=== PATIENT | male | born 1985 | race African-American/Black ===

== ENCOUNTER 2016-11-27 17:23 | Emergency (ER) | payer OTHER ==
[~2016-11-27] VITALS: Wt 64.0 kg
[~2016-11-27 17:23] MED LIST: ANUSOL HC30 GM PO; AZULFIDINE500 M1 PO; BACTRIM DS 8001 TA1 PO; CLINDAMYCIN150 MG PO; FEOSOL325 MG PO; FEROSUL325 MG PO; HYDROCODONE BIT1 T11 PO; K-TAB20 MEQ PO; KEFLEX500 MG PO; NAPROSYN500 MG PO; NATURE'S BLEND F1 MG PO; NORCO 5-325 TA1 EACH PO; Nystatin Ointme30 GM T; PENICILLIN VK500 MG PO; PEPCID20 MG PO; PERCOCET 325 MG1 TA3 PO; PROCTOFOAM-HC 11 FOA RC; PROTONIX40 M1 PO; Peridex 473 ML473 ML PO; TRAMADOL HCL50 MG PO
[2016-11-27] MEDS ORDERED: Bactroban Oint22 GM T (17:32)
[2016-11-27] MEDS ORDERED: NAPROSYN500 MG PO (17:34)
== END 2016-11-27 17:42 | disposition home or self-care (01) ==
LOC: ED 17:23
DX: S31.801A Laceration without foreign body of unspecified buttock, initial encounter (principal); F17.200 Nicotine dependence, unspecified, uncomplicated; Z88.6 Allergy status to analgesic agent; Z79.899 Other long term (current) drug therapy; X58.XXXA Exposure to other specified factors, initial encounter; Y93.9 Activity, unspecified; Y92.9 Unspecified place or not applicable; Y99.9 Unspecified external cause status

== ENCOUNTER 2016-11-28 09:36 | Emergency (ER) | payer OTHER ==
[~2016-11-28] VITALS: Ht 180.3 cm; Wt 67.6 kg
[~2016-11-28 09:36] MED LIST changes: +Bactroban Oint22 GM T
== END 2016-11-28 10:16 | disposition home or self-care (01) ==
LOC: ED 09:36
DX: S31.831A Laceration without foreign body of anus, initial encounter (principal); R03.0 Elevated blood-pressure reading, without diagnosis of hypertension; F17.200 Nicotine dependence, unspecified, uncomplicated; Z79.899 Other long term (current) drug therapy; Z88.6 Allergy status to analgesic agent; X58.XXXA Exposure to other specified factors, initial encounter; Y93.89 Activity, other specified; Y92.89 Other specified places as the place of occurrence of the external cause; Y99.9 Unspecified external cause status

== ENCOUNTER 2017-05-24 20:38 | Inpatient (IN) | payer OTHER ==
[~2017-05-24] VITALS: Ht 180.3 cm; Wt 56.8 kg
[2017-05-24] VITALS (7 sets, daily range): BP systolic 106–133; BP diastolic 75–85
--- NOTE | ~2017-05-24 | O ---
[place], [place] OPERATIVE NOTE NAME: CHATO COLÓN UNIT #: [id number] ROOM: 403 DOCTOR: EDISON LANEJOHN BIRTHDATE: [birth year] DOS: 05/28/2017 INDICATIONS: This is a 32-year-old patient, who presented with chief complaint of lower GI bleed, need of transfusion. The patient has been previously diagnosed by me in 2016 with Crohn's disease; however, he has had his doubts. He has been seen elsewhere also. He has been told he does not have Crohn's. He has been given medication sulfasalazine, he has not taken it. Here, we have supplemented him with Pentasa while it was available in the hospital. The patient has been transfused and stabilized. Endoscopic assessment of his upper GI tract did not show any involvement of the pathology except gastritis. He continued to have his bleedings and anemia, and therefore there was controversy that family was saying he does not have Crohn's. Due to the ambiguity of all this scenario, second opinion, again, colonoscopy, terminal ileoscopy today is performed. Therefore, today's procedure part of investigation is colonoscopy, terminal ileoscopy, biopsy, and photographic series. PREMEDICATION: Versed and propofol. SCOPE: Olympus folding colonoscope 10L video. REPORT: After putting the patient in left lateral position and application of lubricant to the scope, the scope was introduced. Thereafter, under direct visualization, advanced through the length of colon without difficulty. Base of the cecum explored, appendiceal orifice identified, ileocecal valve was defined. Terminal ileum was scoped and negotiated the scope approximately 20 cm inside the terminal ileum. Multiple ulceration at distal ileum was identified clearly consistent with Crohn's disease. Photographic series was obtained. Biopsies multiple times was obtained. The patient extubated, tolerated procedure well. IMPRESSION: Colonoscopy and terminal ileoscopy consistent with multiple ulcerations in terminal ileum consistent with Crohn's disease and consistent with source of blood loss, anemia. PLAN AND DISCUSSION: If Pentasa is covered by insurance, we have to proceed with Pentasa therapy 1 gram q.i.d. and transfusion supportive management. In addition, we will keep the patient on PPI to assure coverage for his dyspepsia. [place], [place] OPERATIVE NOTE NAME: CHATO COLÓN UNIT #: [id number] ROOM: [facility] DOCTOR: JOHN HOGAN MD BIRTHDATE: [birth year] JOHN HOGAN MD CM:OPRECORD:OPERATIVE NOTE [id number] [id number] JOHN HOGAN MD 05/28/17 1707 interface
--- NOTE | ~2017-05-24 | O ---
[place], [place] OPERATIVE NOTE NAME: CHATO COLÓN UNIT #: [id number] ROOM: [facility]- DOCTOR: EDISON LANEJOHN BIRTHDATE: [birth year] DOS: 05/26/2017 HISTORY OF PRESENT ILLNESS: The patient is a 32-year-old who has presented with GI bleed. His initial lactic acid was 5.1. His lipase was normal. C-reactive protein was 13. His INR was 1.2. CBC differential showed H and H of 5 and 17 with white blood cell of 25,000. He had platelet of 713. The patient's comprehensive metabolic panel, BUN and creatinine was 25 and 1.28. Electrolytes balanced. Liver function test normal. Troponin was within normal limit. His CT scan of the abdomen and pelvis was reviewed. Stool in the colon. His hemoglobin A1c was 44.8. His HIV screening was nonreactive. Blood cultures, no growth in 48 hours. PAST MEDICAL HISTORY: History of Crohn's disease. Recently scoped in April and confirmed Crohn's. He has not been taking his medications. Other adjunctive diagnoses, ankle pain, gastroesophageal reflux, hemorrhoid. SOCIAL HISTORY: Recreational drug user. PAST SURGICAL HISTORY: Vasectomy, EGD, and colonoscopy. SOCIAL HISTORY: Marijuana, recreational drug, alcohol, and tobacco user. FAMILY HISTORY: Noncontributory. ALLERGIES: TO TRAMADOL. MEDICATIONS AT HOME: Reviewed. He has been given sulfasalazine 500 mg 2 tablets to be taken b.i.d. in addition to folic acid; however, he has not been compliant. He has been given Protonix. He has not been taking his medicine. PROCEDURE: Today's procedure part of investigation is panendoscopy plus photographic series. PREMEDICATION: Versed and Diprivan. SCOPE: Olympus forward-viewing gastroscope Q10 video. REPORT: After putting the patient in left lateral position and application of lubricant to the scope, the scope was introduced. Thereafter, under direct visualization, I advanced through the length of esophagus without difficulty. Gastric pouch was entered. Gastritis was seen. This is of mild degree. Duodenal bulb, second and third part within normal limits. The patient extubated, tolerated procedure well. IMPRESSION: Mild gastritis, no active bleeding from upper GI tract. I have done rectal examination, melanotic stool of course has been noticed. PLAN AND DISCUSSION: This patient could be bleeding from his distal small bowel. He has been not taking his Crohn's medications and we are going to [place], [place] OPERATIVE NOTE NAME: CHATO COLÓN UNIT #: [id number] ROOM: [facility] DOCTOR: EDISON LANE,JOHN BIRTHDATE: [birth year] encourage him to continue being compliant and workup otherwise in progress. If he continues to lose blood, we are going to reassess his terminal ileum again. Otherwise, we will be comfortable with feeding him and clinically follow as outpatient. He is carrying history of Crohn's disease, recently diagnosed and not taking medication. JOHN HOGAN MD CM:OPRECORD:OPERATIVE NOTE [id number] JOHN HOGAN MD 05/26/17 1543 interface
[2017-05-24] MEDS ORDERED: PROTONIX20 MG PO (20:53)
[2017-05-24 21:23] LABS: MEAN CELL VOLUME 67.3 fl (80.0-94.0); MEAN CORPUSCULAR HGB 19.9 pg (27.0-31.0); MEAN CORPUSCULAR HGB CONC 29.6 g/dl (33.0-37.0); MEAN PLATELET VOLUME 8.5 fl (9.6-12.3); PLATELET COUNT AUTOMATED 713 10*3/uL (130-400); RED BLOOD COUNT 2.66 10*6/uL (4.50-5.90); RED CELL DISTRI WIDTH 29.2 % (0-14.5); WHITE BLOOD COUNT 25.6 10*3/uL (4.8-10.8)
[2017-05-24 21:27] LABS: HEMATOCRIT 17.9 % (42.0-52.0); HEMOGLOBIN 5.3 g/dl (14.0-18.0)
[2017-05-24 21:39] LABS: ACT PARTIAL THROMBO TIME 29.5 SECONDS (20.8-31.5); INTERNATIONAL NORM RATIO 1.2 (2.0-3.5)
[2017-05-24 21:44] LABS: MICROCYTOSIS SLIGHT; PLATELET SUFFICIENCY HIGH (NORMAL); POLYCHROMASIA SLIGHT; TARGET CELLS FEW; TOTAL CELLS COUNTED 100 #CELLS
[2017-05-24 21:45] LABS: BURR CELLS FEW; SCHISTOCYTES FEW
[2017-05-24 22:03] LABS: ALBUMIN 2.4 gm/dl (3.1-4.5); ALKALINE PHOSPHATASE 76 U/L (45-117); BUN 25 mg/dl (7-24); CHLORIDE 100 mmol/L (98-107); CREATININE 1.28 mg/dL (0.70-1.30); POTASSIUM 4.4 mmol/L (3.5-5.1); SGOT/AST 7 IU/L (3-35); SGPT/ALT 9 U/L (12-78); SODIUM 133 mmol/L (136-145); TOTAL PROTEIN 6.9 gm/dL (6.4-8.2)
[2017-05-24 22:05] LABS: TROPONIN I < 0.015 ng/ml (<0.045)
[2017-05-24 23:39] LABS: HEMOGLOBIN 6.6 g/dl (14.0-18.0)
[2017-05-25] VITALS: BP 139/81
[2017-05-25 04:00] VITALS: BP 129/86
[2017-05-25 04:28] LABS: HEMATOCRIT 23.5 % (42.0-52.0); HEMOGLOBIN 7.9 g/dl (14.0-18.0); MEAN CORPUSCULAR HGB 24.8 pg (27.0-31.0); MEAN CORPUSCULAR HGB CONC 33.6 g/dl (33.0-37.0); MEAN PLATELET VOLUME 8.1 fl (9.6-12.3); PLATELET COUNT AUTOMATED 533 10*3/uL (130-400); RED BLOOD COUNT 3.18 10*6/uL (4.50-5.90); WHITE BLOOD COUNT 19.8 10*3/uL (4.8-10.8)
[2017-05-25 04:30] LABS: MEAN CELL VOLUME 73.9 fl (80.0-94.0)
[2017-05-25 04:40] LABS: ACT PARTIAL THROMBO TIME 29.7 SECONDS (20.8-31.5); INTERNATIONAL NORM RATIO 1.1 (2.0-3.5)
[2017-05-25 04:58] LABS: BUN 24 mg/dl (7-24); CHLORIDE 101 mmol/L (98-107); CHOLESTEROL 87 mg/dL (<200); CREATININE 0.91 mg/dL (0.70-1.30); HDL CHOLESTEROL 19 mg/dl (40-60); LDL CHOLESTEROL 27 mg/dL (9-159); PHOSPHOROUS 4.7 mg/dL (2.5-4.9); POTASSIUM 4.2 mmol/L (3.5-5.1); SODIUM 134 mmol/L (136-145); TRIGLYCERIDES 205 mg/dl (<150); VLDL CHOLESTEROL 41 mg/dL (6-40)
[2017-05-25 05:02] LABS: BASOPHILS 1 % (0-1); MICROCYTOSIS SLIGHT; PLATELET SUFFICIENCY HIGH (NORMAL); TARGET CELLS FEW; TOTAL CELLS COUNTED 100 #CELLS
[2017-05-25 05:04] LABS: THYROID STIM HORMONE (HS) 0.967 uIU/ml (0.358-4.75)
[2017-05-25 07:15] LABS: BILIRUBIN NEGATIVE (NEGATIVE); BLOOD NEGATIVE (NEGATIVE); COLOR YELLOW (YELLOW); GLUCOSE NEGATIVE (NEGATIVE); KETONE NEGATIVE (NEGATIVE); LEUKO ESTERASE NEGATIVE (NEGATIVE); NITRITE NEGATIVE (NEGATIVE); SPECIFIC GRAVITY 1.015 (1.005-1.030)
[2017-05-25 07:31] LABS: CLARITY CLEAR (CLEAR); EPITHELIAL CELLS 0-2; RBC 0-2 rbc/hpf (0-2)
[2017-05-25 08:00] VITALS: BP 126/78
[2017-05-25 08:12] LABS: VITAMIN D, 25-HYDROXY 9.1 ng/mL (30-100)
[2017-05-25 10:31] LABS: HEMATOCRIT 26.2 % (42.0-52.0); HEMOGLOBIN 8.6 g/dl (14.0-18.0)
[2017-05-25 12:00] VITALS: BP 112/74
[2017-05-25 16:00] VITALS: BP 122/76
[2017-05-25 20:00] VITALS: BP 123/77
[2017-05-26] VITALS (10 sets, daily range): BP systolic 101–148; BP diastolic 53–76
[2017-05-26 05:40] LABS: ALBUMIN 2.4 gm/dl (3.1-4.5); BUN 16 mg/dl (7-24); CHLORIDE 102 mmol/L (98-107); CREATININE 0.81 mg/dL (0.70-1.30); POTASSIUM 4.1 mmol/L (3.5-5.1); SGOT/AST 11 IU/L (3-35); SGPT/ALT 11 U/L (12-78); SODIUM 134 mmol/L (136-145); TOTAL PROTEIN 6.5 gm/dL (6.4-8.2)
[2017-05-26 05:41] LABS: ALKALINE PHOSPHATASE 67 U/L (45-117)
[2017-05-26 05:57] LABS: HEMATOCRIT 27.2 % (42.0-52.0); HEMOGLOBIN 8.8 g/dl (14.0-18.0); MEAN CELL VOLUME 75.3 fl (80.0-94.0); MEAN CORPUSCULAR HGB 24.4 pg (27.0-31.0); MEAN CORPUSCULAR HGB CONC 32.4 g/dl (33.0-37.0); MEAN PLATELET VOLUME 8.2 fl (9.6-12.3); PLATELET COUNT AUTOMATED 542 10*3/uL (130-400); RED BLOOD COUNT 3.61 10*6/uL (4.50-5.90); RED CELL DISTRI WIDTH 26.7 % (0-14.5); WHITE BLOOD COUNT 17.2 10*3/uL (4.8-10.8)
[2017-05-26 07:04] LABS: HIV 1+2 AB + HIV1 P24 AG Non Reactive (Non Reactive)
[2017-05-26 07:14] LABS: MICROCYTOSIS SLIGHT; PLATELET SUFFICIENCY HIGH (NORMAL); TARGET CELLS FEW; TOTAL CELLS COUNTED 100 #CELLS
[2017-05-27] VITALS: BP 109/62
[2017-05-27 04:00] VITALS: BP 111/69
[2017-05-27 05:47] LABS: HEMATOCRIT 26.1 % (42.0-52.0); HEMOGLOBIN 8.4 g/dl (14.0-18.0); MEAN CELL VOLUME 77.7 fl (80.0-94.0); MEAN CORPUSCULAR HGB CONC 32.2 g/dl (33.0-37.0); PLATELET COUNT AUTOMATED 546 10*3/uL (130-400); RED BLOOD COUNT 3.36 10*6/uL (4.50-5.90); RED CELL DISTRI WIDTH 27.6 % (0-14.5); WHITE BLOOD COUNT 9.8 10*3/uL (4.8-10.8)
[2017-05-27 05:54] LABS: IRON 13 ug/dL (65-175); TOTAL IRON BINDING CAPACITY 186 ug/dl (250-450)
[2017-05-27 05:58] LABS: RETICULOCYTE % 1.78 % (0.50-2.50)
[2017-05-27 06:00] VITALS: BP 111/69
[2017-05-27 07:21] LABS: TOTAL CELLS COUNTED 100 #CELLS
[2017-05-27 07:22] LABS: MICROCYTOSIS SLIGHT; PLATELET SUFFICIENCY HIGH (NORMAL); POLYCHROMASIA SLIGHT; TARGET CELLS FEW
[2017-05-27 16:00] VITALS: BP 128/82
[2017-05-27 20:05] VITALS: BP 135/72
[2017-05-27 23:57] VITALS: BP 135/90
[2017-05-28 06:10] LABS: BASO % 0.2 % (0.0-1.0); EOS % 0.3 % (1.0-4.0); HEMATOCRIT 27.8 % (42.0-52.0); HEMOGLOBIN 8.6 g/dl (14.0-18.0); LYMPH # 1.1 10*3/uL (1.3-4.4); LYMPH % 8.9 % (27.0-41.0); MEAN CELL VOLUME 78.8 fl (80.0-94.0); MEAN CORPUSCULAR HGB 24.4 pg (27.0-31.0); MEAN CORPUSCULAR HGB CONC 30.9 g/dl (33.0-37.0); MEAN PLATELET VOLUME 8.2 fl (9.6-12.3); MONO % 8.3 % (3.0-9.0); NEUT # 10.3 10*3/uL (2.3-7.9); NEUT % 81.9 % (47.0-73.0); PLATELET COUNT AUTOMATED 622 10*3/uL (130-400); RED BLOOD COUNT 3.53 10*6/uL (4.50-5.90); RED CELL DISTRI WIDTH 27.9 % (0-14.5); WHITE BLOOD COUNT 12.6 10*3/uL (4.8-10.8)
[2017-05-28 08:00] VITALS: BP 124/72
[2017-05-28] MEDS ORDERED: VITAMIN D5000 UNI1 PO (11:02)
[2017-05-28] MEDS ORDERED: NATURE'S BLEND F1 MG PO (11:02)
[2017-05-28 12:11] VITALS: BP 121/89
[2017-05-28 14:55] VITALS: BP 99/54
[2017-05-28] MEDS ORDERED: PENTASA500 M1 PO (15:03)
[2017-05-28 15:10] VITALS: BP 112/64
[2017-05-28 15:25] VITALS: BP 110/60
[2017-05-28 16:00] VITALS: BP 138/67
== END 2017-05-28 17:49 | disposition home or self-care (01) | DRG 871 ==
LOC: ED 20:38 → EDHOLD 22:05 → ED 22:05 → ICCU 22:09 → EDHOLD 22:09 → ICCU 22:16 → 4E 05-27 15:42
PROVIDERS: Hospitalist; Internal Medicine; Internal Medicine Gastroenterology; Student in an Organized Health Care Education/Training Program
PROC: 30233N1 Transfusion of Nonautologous Red Blood Cells into Peripheral Vein, Percutaneous Approach (ICD-10-PCS; principal; 2017-05-24)
PROC: 0DJ08ZZ Inspection of Upper Intestinal Tract, Via Natural or Artificial Opening Endoscopic (ICD-10-PCS; 2017-05-26)
PROC: 0DBB8ZX Excision of Ileum, Via Natural or Artificial Opening Endoscopic, Diagnostic (ICD-10-PCS; 2017-05-28)
DX: A41.9 Sepsis, unspecified organism (principal); E43 Unspecified severe protein-calorie malnutrition; E87.2 Acidosis; K29.71 Gastritis, unspecified, with bleeding; D62 Acute posthemorrhagic anemia; E87.1 Hypo-osmolality and hyponatremia; K50.911 Crohn's disease, unspecified, with rectal bleeding; K92.1 Melena; Z68.1 Body mass index [BMI] 19.9 or less, adult; K52.9 Noninfective gastroenteritis and colitis, unspecified; R65.20 Severe sepsis without septic shock; G89.29 Other chronic pain; M25.572 Pain in left ankle and joints of left foot; E78.1 Pure hyperglyceridemia; R73.9 Hyperglycemia, unspecified; D47.3 Essential (hemorrhagic) thrombocythemia; F17.210 Nicotine dependence, cigarettes, uncomplicated; E55.9 Vitamin D deficiency, unspecified; K21.9 Gastro-esophageal reflux disease without esophagitis; Z88.8 Allergy status to other drugs, medicaments and biological substances; Z79.899 Other long term (current) drug therapy; Z87.81 Personal history of (healed) traumatic fracture; Z98.52 Vasectomy status; Z72.89 Other problems related to lifestyle; Z71.6 Tobacco abuse counseling; Z80.7 Family history of other malignant neoplasms of lymphoid, hematopoietic and related tissues; Z82.49 Family history of ischemic heart disease and other diseases of the circulatory system

== ENCOUNTER 2017-08-01 18:09 | Emergency (ER) | payer OTHER ==
[~2017-08-01] VITALS: Ht 180.3 cm; Wt 65.8 kg
[~2017-08-01 18:09] MED LIST changes: +CYCLOBENZAPRINE10 MG PO; +PENTASA500 M1 PO; +PROTONIX20 MG PO; +VITAMIN D5000 UNI1 PO
[2017-08-01] MEDS ORDERED: NAPROSYN500 MG PO (19:45)
== END 2017-08-01 20:25 | disposition home or self-care (01) ==
LOC: ED 18:09
DX: S29.011D Strain of muscle and tendon of front wall of thorax, subsequent encounter (principal); F17.200 Nicotine dependence, unspecified, uncomplicated; F12.10 Cannabis abuse, uncomplicated; Z90.89 Acquired absence of other organs; Z79.899 Other long term (current) drug therapy; Z88.6 Allergy status to analgesic agent; X58.XXXD Exposure to other specified factors, subsequent encounter

== ENCOUNTER 2017-08-15 05:50 | Inpatient (IN) | payer OTHER ==
[2017-08-15] VITALS (19 sets, daily range): BP systolic 92–130; BP diastolic 44–86
[~2017-08-15] VITALS: Ht 180.3 cm; Wt 72.2 kg
--- NOTE | ~2017-08-15 | O ---
[place], [place] OPERATIVE NOTE NAME: CHATO COLÓN UNIT #: [id number] ROOM: [facility]- DOCTOR: EDISON LANE,JOHN BIRTHDATE: [birth year] DOS: 08/16/2017 INDICATIONS: The patient has presented with GI bleed, profound anemia, and initially H and H of 5 and 18, microcytic indices. The patient with known history of Crohn's disease and had to be admitted, observed, transfused, and stabilized. His troponin during this evaluation was normal. A comprehensive metabolic panel, benign. A CT scan of the abdomen and pelvis was obtained. No definitive pathology. Platelet function assay was 101. Normal hemoglobin and hematocrit periodically after transfusion was reassessed until be achieved. H and H of 9 and 28.8. Latest hemoglobin and hematocrit is 9 and 29, which is stabilized. His latest comprehensive metabolic panel is within normal limit except for low albumin and protein at 2.7 and 5.7 respectively. PAST MEDICAL HISTORY: Associated with Crohn's disease, hemorrhoid, GERD. PAST SURGICAL HISTORY: Vasectomy. SOCIAL HISTORY: Marijuana user or alcohol use and tobacco abuse, all present. FAMILY HISTORY: Lymphoma in father. ALLERGIES: TRAMADOL. MEDICATIONS: At home including naproxen, mesalamine, Pentasa 500 mg 2 tablets q.i.d., folic acid 1 mg daily, cholecalciferol as well. PROCEDURE: Today's procedure part of investigation of GI bleed is panendoscopy. PREMEDICATION: Propofol. SCOPE: Olympus forwarding gastroscope Q10 video. REPORT: After putting the patient in left lateral position and application of lubricant to the scope, the scope was introduced. Thereafter, under direct visualization, I advanced through the length of esophagus without difficulty. Small hiatal hernia was noticed approximately 2 cm. Gastric pouch was entered. Gastritis seen. Duodenal bulb, second and third part free of ulceration and lesion. Air was suctioned out. The patient was extubated, tolerated procedure well. IMPRESSION: Hiatal hernia, gastritis. PLAN AND DISCUSSION: Apparently, this gentleman has had colonoscopy in May. Apparently, he has been noncompliant in his intake of mesalamine. We are going to transfuse as soon as his H and H stabilizes. We will encourage him to continue with the correct dose of mesalamine 500 mg 2 tablets 4 times a day and we will observe H and H. [place], [place] OPERATIVE NOTE NAME: CHATO COLÓN UNIT #: [id number] ROOM: [facility] DOCTOR: EDISON LANE,JOHN BIRTHDATE: [birth year] JOHN HOGAN MD CM:OPRECORD:OPERATIVE NOTE 34 27 JOHN HOGAN MD 08/16/172127 interface
--- NOTE | ~2017-08-15 | WRIGHTHP ---
[place], [place] PATIENT HISTORY AND PHYSICAL EXAM NAME: CHATO COLÓN [facility] #: [id number] UNIT #: [id number] ROOM: [facility] DOCTOR: LAURIE ACOSTA MD BIRTHDATE: [birth year] DOS: 08/15/2017 HISTORY OF PRESENT ILLNESS: The patient has been admitted to hospital in the morning with the GI bleeding. The patient was feeling fairly good during the daytime and he ate normal breakfast, lunch and dinner but then he started having some pain in the abdomen and also had some nausea. He went to pass his stools and found blood in his bowels and this blood was also bright red and also tarry and he slept but feeling weak. Then in the morning, he got up, he had vomiting, but there is no blood in it and he had another bloody stools and he collapsed and passed out and he was brought to emergency from where he is admitted to hospital with the GI bleed and severe hypochromic anemia secondary to GI bleed. The patient was admitted to hospital in May, almost in the same situation and had blood transfusion given. At that time, he had colonoscopy done by Dr. Perez which showed multiple ulcerations distal ileum consistent with Crohn's disease, post hemorrhagic anemia, enterocolitis, severe sepsis, tachycardia, tachypnea, hyponatremia, lactic acidosis, protein calorie malnutrition, elevated C-reactive protein, leukocytosis, thrombocytosis, tobacco abuse, history of drinking some alcohol, vitamin D deficiency, GERD syndrome, esophagitis and patient needed blood transfusion ____. The patient is taking following medication at present, he is taking ferrous sulfate 325 mg twice daily, folic acid 1 mg daily, Protonix 20 mg daily, vitamin D 5000 units daily, Pentasa 500 mg 4 times daily. LABORATORY DATA: CBC done in the ER showed white count 90,700, RBC 2.26, hemoglobin 5.6, hematocrit 18.4, MCV 81 indicating severe hypochromic anemia secondary to his GI bleed. Comprehensive metabolic profile showed glucose 136, chloride 110, calcium 7.5, total protein 6.2, albumin 2.6 indicating hypoalbuminemia, hypoproteinemia, hypocalcemia. Other values are fairly normal. Protein level was normal. PHYSICAL EXAMINATION: GENERAL: The patient is conscious, alert and oriented. VITAL SIGNS: Temperature 97.3, pulse is 98, respiration is 21, oxygen 98% and blood pressure is 128/60 and patient is receiving blood transfusion. HEENT: Unremarkable. No glandular enlargement. NECK: Trachea central. Neck veins are not distended. Carotid pulses are normal. HEART: Regular. No murmur. LUNGS: Clear. No crepitations or rhonchi. ABDOMEN: Not distended. Liver and spleen not enlarged. There is no area of tenderness, no mass palpable. Bowel sounds are present. EXTREMITIES: No edema of leg. NEUROLOGIC: No neurological deficit observed. DIAGNOSES: Gastrointestinal bleeding due to acute excerebration of his Crohn's disease and hypochromic anemia, severe secondary to GI bleed, which is fresh and also having hypoalbuminemia, hypoproteinemia and the patient is having low calcium also. PLAN OF TREATMENT: The patient will be continued on the home medication. He [place], [place] PATIENT HISTORY AND PHYSICAL EXAM NAME: CHATO COLÓN UNIT #: [id number] ROOM: [facility] DOCTOR: LAURIE ACOSTA MD BIRTHDATE: [birth year] will receive 2 units of blood transfusion. Repeat CBC and comprehensive profile and Dr. Perez will be consulted and he will be followed very, very closely. LAURIE ACOSTA MD CM:HISPHYS:PATIENT HISTORY AND PHYSICAL EXAMINATION 1017 1206 LAURIE ACOSTA MD 08/15/17 1242 interface
[2017-08-15 06:25] LABS: HEMATOCRIT 18.4 % (42.0-52.0); MEAN CELL VOLUME 81.4 fl (80.0-94.0); MEAN CORPUSCULAR HGB 23.9 pg (27.0-31.0); MEAN CORPUSCULAR HGB CONC 29.3 g/dl (33.0-37.0); PLATELET COUNT AUTOMATED 496 10*3/uL (130-400); RED BLOOD COUNT 2.26 10*6/uL (4.50-5.90); RED CELL DISTRI WIDTH 20.3 % (0-14.5); WHITE BLOOD COUNT 19.7 10*3/uL (4.8-10.8)
[2017-08-15 06:27] LABS: HEMOGLOBIN 5.4 g/dl (14.0-18.0)
[2017-08-15 06:35] LABS: ACT PARTIAL THROMBO TIME 19.5 SECONDS (20.8-31.5)
[2017-08-15 06:40] LABS: ALBUMIN 2.9 gm/dl (3.1-4.5); ALKALINE PHOSPHATASE 65 U/L (45-117); BUN 22 mg/dl (7-24); CHLORIDE 110 mmol/L (98-107); CREATININE 1.03 mg/dL (0.70-1.30); POTASSIUM 3.9 mmol/L (3.5-5.1); SGOT/AST 14 IU/L (3-35); SGPT/ALT 11 U/L (12-78); SODIUM 141 mmol/L (136-145); TOTAL PROTEIN 6.2 gm/dL (6.4-8.2)
[2017-08-15 06:41] LABS: TROPONIN I < 0.015 ng/ml (<0.045)
[2017-08-15 06:45] LABS: BASOPHILS 1 % (0-1); PLATELET SUFFICIENCY HIGH (NORMAL); TOTAL CELLS COUNTED 100 #CELLS
[2017-08-15 06:46] LABS: POLYCHROMASIA SLIGHT
[2017-08-15 16:13] LABS: HEMATOCRIT 23.2 % (42.0-52.0); HEMOGLOBIN 7.1 g/dl (14.0-18.0)
[2017-08-15 21:58] LABS: HEMATOCRIT 26.1 % (42.0-52.0); HEMOGLOBIN 8.4 g/dl (14.0-18.0)
[2017-08-16] VITALS (10 sets, daily range): BP systolic 114–133; BP diastolic 56–83
[2017-08-16 05:15] LABS: ALBUMIN 2.7 gm/dl (3.1-4.5); ALKALINE PHOSPHATASE 52 U/L (45-117); BUN 14 mg/dl (7-24); CHLORIDE 109 mmol/L (98-107); CREATININE 0.97 mg/dL (0.70-1.30); POTASSIUM 3.9 mmol/L (3.5-5.1); SGOT/AST 16 IU/L (3-35); SGPT/ALT 11 U/L (12-78); SODIUM 142 mmol/L (136-145); TOTAL PROTEIN 5.7 gm/dL (6.4-8.2)
[2017-08-16 06:15] LABS: BASO # 0.1 10*3/uL (0.0-0.1); BASO % 0.6 % (0.0-1.0); EOS # 0.2 10*3/uL (0.0-0.4); EOS % 1.7 % (1.0-4.0); HEMATOCRIT 28.8 % (42.0-52.0); LYMPH # 1.9 10*3/uL (1.3-4.4); LYMPH % 18.1 % (27.0-41.0); MEAN CORPUSCULAR HGB 26.2 pg (27.0-31.0); MEAN CORPUSCULAR HGB CONC 31.3 g/dl (33.0-37.0); MEAN PLATELET VOLUME 8.8 fl (9.6-12.3); MONO # 0.7 10*3/uL (0.1-1.0); MONO % 6.9 % (3.0-9.0); NEUT # 7.6 10*3/uL (2.3-7.9); NEUT % 71.9 % (47.0-73.0); PLATELET COUNT AUTOMATED 354 10*3/uL (130-400); RED BLOOD COUNT 3.43 10*6/uL (4.50-5.90); RED CELL DISTRI WIDTH 17.3 % (0-14.5); WHITE BLOOD COUNT 10.5 10*3/uL (4.8-10.8)
[2017-08-16 14:49] LABS: HEMOGLOBIN 9.4 g/dl (14.0-18.0)
[2017-08-16 19:20] LABS: HEMATOCRIT 31.1 % (42.0-52.0); HEMOGLOBIN 9.9 g/dl (14.0-18.0)
[2017-08-17] VITALS: BP 103/55
[2017-08-17 04:00] VITALS: BP 119/70
[2017-08-17 05:13] LABS: BASO % 0.4 % (0.0-1.0); EOS # 0.2 10*3/uL (0.0-0.4); HEMATOCRIT 28.3 % (42.0-52.0); LYMPH % 9.4 % (27.0-41.0); MEAN CELL VOLUME 82.3 fl (80.0-94.0); MEAN CORPUSCULAR HGB 26.2 pg (27.0-31.0); MEAN CORPUSCULAR HGB CONC 31.8 g/dl (33.0-37.0); MEAN PLATELET VOLUME 8.4 fl (9.6-12.3); MONO # 0.8 10*3/uL (0.1-1.0); MONO % 7.3 % (3.0-9.0); NEUT # 8.6 10*3/uL (2.3-7.9); NEUT % 80.5 % (47.0-73.0); PLATELET COUNT AUTOMATED 389 10*3/uL (130-400); RED BLOOD COUNT 3.44 10*6/uL (4.50-5.90); RED CELL DISTRI WIDTH 17.4 % (0-14.5); WHITE BLOOD COUNT 10.7 10*3/uL (4.8-10.8)
[2017-08-17 08:00] VITALS: BP 109/72
[2017-08-17 10:43] LABS: BILIRUBIN NEGATIVE (NEGATIVE); BLOOD NEGATIVE (NEGATIVE); CLARITY CLEAR (CLEAR); COLOR YELLOW (YELLOW); GLUCOSE NEGATIVE (NEGATIVE); KETONE TRACE (NEGATIVE); LEUKO ESTERASE TRACE (NEGATIVE); NITRITE NEGATIVE (NEGATIVE); PH 6.5 (5.0-9.0); SPECIFIC GRAVITY 1.015 (1.005-1.030); UROBILINOGEN 0.2 E.U./dl (0.2-1.0)
[2017-08-17 11:05] LABS: EPITHELIAL CELLS 0-2
[2017-08-17 12:00] VITALS: BP 107/74
[2017-08-17 16:00] VITALS: BP 129/81
[2017-08-17 20:00] VITALS: BP 130/75
[2017-08-18] VITALS: BP 131/77
[2017-08-18 06:39] LABS: HEMATOCRIT 30.6 % (42.0-52.0); HEMOGLOBIN 9.7 g/dl (14.0-18.0)
[2017-08-18 08:00] VITALS: BP 120/64
[2017-08-18] MEDS ORDERED: SULFASALAZINE500 M1 PO (11:15)
[2017-08-18 12:00] VITALS: BP 143/78
== END 2017-08-18 12:30 | disposition home or self-care (01) | DRG 377 ==
LOC: ED 05:50 → ICCU 07:06 → EDHOLD 07:06 → ICCU 07:38 → 4E 08-17 16:49 → 5E 08-17 19:08
PROVIDERS: Family Medicine; Internal Medicine; Internal Medicine Gastroenterology; Student in an Organized Health Care Education/Training Program
PROC: 30233N1 Transfusion of Nonautologous Red Blood Cells into Peripheral Vein, Percutaneous Approach (ICD-10-PCS; 2017-08-15)
PROC: 0DB68ZX Excision of Stomach, Via Natural or Artificial Opening Endoscopic, Diagnostic (ICD-10-PCS; principal; 2017-08-16)
DX: K29.71 Gastritis, unspecified, with bleeding (principal); E43 Unspecified severe protein-calorie malnutrition; R65.10 Systemic inflammatory response syndrome (SIRS) of non-infectious origin without acute organ dysfunction; E87.8 Other disorders of electrolyte and fluid balance, not elsewhere classified; E77.8 Other disorders of glycoprotein metabolism; D62 Acute posthemorrhagic anemia; K50.011 Crohn's disease of small intestine with rectal bleeding; D50.9 Iron deficiency anemia, unspecified; K64.9 Unspecified hemorrhoids; F12.90 Cannabis use, unspecified, uncomplicated; E55.9 Vitamin D deficiency, unspecified; K21.9 Gastro-esophageal reflux disease without esophagitis; K44.9 Diaphragmatic hernia without obstruction or gangrene; Z71.6 Tobacco abuse counseling; Z88.8 Allergy status to other drugs, medicaments and biological substances; Z79.899 Other long term (current) drug therapy; Z98.52 Vasectomy status; Z82.49 Family history of ischemic heart disease and other diseases of the circulatory system; Z80.7 Family history of other malignant neoplasms of lymphoid, hematopoietic and related tissues; Z72.0 Tobacco use; Z68.22 Body mass index [BMI] 22.0-22.9, adult

== ENCOUNTER 2018-03-13 12:06 | Emergency (ER) | payer SELFPAY ==
[~2018-03-13] VITALS: Ht 180.3 cm; Wt 67.6 kg
--- NOTE | ~2018-03-13 | EKG ---
[place], [place] ELECTROCARDIOGRAM REPORT NAME: CHATO COLÓN UNIT #: [id number] ROOM: DOCTOR: EPIPHANY DRAFT REPORT BIRTHDATE: [birth year] [facility] Test Date: 2018-03-13 Test Time: 12:36:09 Pat Name: CHATO COLÓN Department: ER Room: Gender: Refinery Operator Crude Unit: Cely Bhatti : 1985 Requested By: BERTA BARCLAY Order Number: [id number] Reading MD: Trevon Chawla MD Measurements Intervals [place] Rate: 93 P: 77 MI: 140 QRS: 46 QRSD: 89 T: 58 QT: 339 QTc: 422 Interpretive Statements Sinus rhythm Borderline T wave abnormalities Borderline ST elevation, anterior leads Electronically Signed On 03-14-2018 13:09:12 PST by Trevon Chawla MD CM:EKGRPT:ELECTROCARDIOGRAM REPORT [id number] [id number] BERTA BARCLAY MD EPIPHANY DRAFT REPORT BERTA BARCLAY MD
[~2018-03-13 12:06] MED LIST changes: +SULFASALAZINE500 M1 PO
[2018-03-13 12:31] LABS: BASO % 0.4 % (0.0-1.0); EOS % 0.4 % (1.0-4.0); HEMATOCRIT 33.6 % (42.0-52.0); HEMOGLOBIN 10.6 g/dl (14.0-18.0); LYMPH # 0.9 10*3/uL (1.3-4.4); LYMPH % 10.9 % (27.0-41.0); MEAN CELL VOLUME 75.3 fl (80.0-94.0); MEAN CORPUSCULAR HGB 23.8 pg (27.0-31.0); MEAN CORPUSCULAR HGB CONC 31.5 g/dl (33.0-37.0); MEAN PLATELET VOLUME 8.4 fl (9.6-12.3); MONO % 11.4 % (3.0-9.0); NEUT # 6.5 10*3/uL (2.3-7.9); NEUT % 76.7 % (47.0-73.0); PLATELET COUNT AUTOMATED 666 10*3/uL (130-400); RED BLOOD COUNT 4.46 10*6/uL (4.50-5.90); RED CELL DISTRI WIDTH 18.8 % (0-14.5); WHITE BLOOD COUNT 8.5 10*3/uL (4.8-10.8)
[2018-03-13 12:40] LABS: ACT PARTIAL THROMBO TIME 31.3 SECONDS (20.8-31.5); INTERNATIONAL NORM RATIO 1.1 (2.0-3.5)
[2018-03-13 12:51] LABS: ALBUMIN 2.9 gm/dl (3.1-4.5); ALKALINE PHOSPHATASE 75 U/L (45-117); BUN 6 mg/dl (7-24); CHLORIDE 100 mmol/L (98-107); POTASSIUM 3.4 mmol/L (3.5-5.1); SGOT/AST 14 IU/L (3-35); SGPT/ALT 10 U/L (12-78); SODIUM 133 mmol/L (136-145); TOTAL PROTEIN 8.1 gm/dL (6.4-8.2)
[2018-03-13 12:56] LABS: TROPONIN I < 0.015 ng/ml (<0.045)
== END 2018-03-13 14:49 | disposition home or self-care (01) ==
LOC: ED 12:06
PROVIDERS: Emergency Medicine
DX: K50.90 Crohn's disease, unspecified, without complications (principal); K21.9 Gastro-esophageal reflux disease without esophagitis; Z88.6 Allergy status to analgesic agent; Z79.899 Other long term (current) drug therapy

== ENCOUNTER 2018-04-29 17:45 | Inpatient (IN) | payer OTHER ==
[~2018-04-29] VITALS: Ht 180.3 cm; Wt 68.0 kg
--- NOTE | ~2018-04-29 | CON ---
[place], [place] REPORT OF CONSULTATION NAME: CHATO COLÓN UNIT #: [id number] ROOM: 425 DOCTOR: JOHN HOGAN MD BIRTHDATE: [birth year] DOS: 04/30/2018 HISTORY OF PRESENT ILLNESS: A 33-year-old patient who has presented with chief complaint of epigastric abdominal pain, not feeling well, and tired. He was admitted and panel of blood work was done, 2+ bacteria in the urine was noticed, INR was 1.1, H and H were 10 and 32 with microcytic indices with platelet count of 700+, comprehensive metabolic panel with BUN and creatinine 11 and 0.8, GFR greater than 60, electrolytes balanced, magnesium 2.3, bilirubin 0.9, C-reactive protein 7.7. CT scan of the liver, spleen, adrenal gland, pancreas and kidney without any pathology, somewhat limited exam, mild distal ileal diffuse wall thickening was noticed. His electrolytes were balanced on the followup. Latest CBC, white blood cell 15 with H and H of 9 and 30. PAST MEDICAL HISTORY: Associated with past medical history of severe protein-calorie malnutrition, anemia, history of Crohn's disease, and gastroesophageal reflux. PAST SURGICAL HISTORY: Vasectomy, EGD, and colonoscopy. SOCIAL HISTORY: Cannabis user, recreational drug use history, smoker, social alcohol. FAMILY HISTORY: Noncontributory. ALLERGIES: TRAMADOL. MEDICATION LIST AT HOME: Noticed including ferrous sulfate, folic acid, pantoprazole, and sulfasalazine. REVIEW OF SYSTEMS: In general: HEENT: Denies double vision or blurred vision. RESPIRATORY: Denies acute shortness of breath. CARDIOVASCULAR: Denies acute chest pain. DIGESTIVE SYSTEM: Epigastric distress, some blood in the stool. PHYSICAL EXAMINATION: VITAL SIGNS: Stable. HEENT: Head: Normocephalic, nontraumatic. Eyes: Pupils are round and reactive. Sclerae nonicteric. Conjunctivae pink. Nose: Nonobstructed, nondeviated. In general, appearing pale in the head and neck area. Mouth and buccal mucosa benign. NECK: Supple. No thyromegaly, no cervical lymphadenopathy. CHEST: Symmetric anatomy, equal expansion. No wheeze, no rhonchi. HEART: Normal sinus rhythm, no gallop, no murmur. ABDOMEN: Soft. No hepato-organomegaly. Bowel sounds present. EXTREMITIES: No cyanosis, no pedal edema. NEUROLOGIC: Alert, oriented to time, place, and person. IMPRESSION: Anemia, known history of Crohn's disease, and endoscopic history of gastritis and hiatal hernia. Other adjunctive diagnoses as outlined in the [place], [place] REPORT OF CONSULTATION NAME: CHATO COLÓN UNIT #: [id number] ROOM: 425 DOCTOR: JOHN HOGAN MD BIRTHDATE: [birth year] paragraph of past medical, surgical history. Gastritis repeatedly has been reconfirmed without any active blood loss from upper GI tract. His colonoscopy of May 2017 has been consistent with multiple ulcerations at the distal ileocecal anatomy consistent with Crohn's disease. JOHN HOGAN MD CM:CONSTR:REPORT OF CONSULTATION 1447 05/11/18 1103 interface
--- NOTE | ~2018-04-29 | O ---
[place], [place] OPERATIVE NOTE NAME: CHATO COLÓN UNIT #: [id number] ROOM: 425 DOCTOR: JOHN HOGAN MD BIRTHDATE: [birth year] DOS: 04/30/2018 GASTROENDOSCOPIC REPORT INDICATIONS: This is a 33-year-old patient who presented with anemia with a drop in H and H, noncompliant patient with Crohn's disease history. PROCEDURE: Today's procedure part is panendoscopy plus esophageal scope dilation plus biopsy of antrum. PREMEDICATION: Propofol. SCOPE: Olympus forward-viewing 180AL series. REPORT: After putting the patient in left lateral position and application of lubricant to the scope, scope was introduced. Thereafter, under direct visualization, advanced through the length of esophagus without difficulty. Esophagus, cervical, thoracic distal carefully examined. Generalized esophagitis, esophageal stricture of the esophagus was noted to the point where embraced the scope. Gastric pouch was entered. Hiatal hernia was noticed. Duodenal bulb, second and third part within normal limits. Antral biopsy was obtained. The patient extubated, tolerated the procedure well. IMPRESSION: Gastritis, esophagitis, esophageal stricture, status post scope dilation, and hiatal hernia. PLAN AND DISCUSSION: Protonix 40 mg daily. Continuation with sulfasalazine and folic acid therapy. Requesting the patient to remain more compliant with medications. Dinner to remain ice cream, milk shake, ice cold liquids and soft diet from tomorrow. JOHN HOGAN MD CM:OPRECORD:OPERATIVE NOTE 1606 1641 JOHN HOGAN MD 04/30/18 1642 interface
[2018-04-29 17:48] VITALS: BP 124/97
[2018-04-29 19:28] LABS: BILIRUBIN NEGATIVE (NEGATIVE); BLOOD NEGATIVE (NEGATIVE); CLARITY SL CLOUDY (CLEAR); COLOR YELLOW (YELLOW); GLUCOSE NEGATIVE (NEGATIVE); KETONE NEGATIVE (NEGATIVE); LEUKO ESTERASE NEGATIVE (NEGATIVE); NITRITE NEGATIVE (NEGATIVE); SPECIFIC GRAVITY 1.015 (1.005-1.030); UROBILINOGEN 0.2 E.U./dl (0.2-1.0)
[2018-04-29 19:39] LABS: BACTERIA 2+; MUCOUS TRACE
[2018-04-29 19:56] LABS: BASO % 0.3 % (0.0-1.0); EOS # 0.1 10*3/uL (0.0-0.4); EOS % 0.7 % (1.0-4.0); HEMATOCRIT 32.4 % (42.0-52.0); LYMPH # 1.1 10*3/uL (1.3-4.4); MEAN CELL VOLUME 72.3 fl (80.0-94.0); MEAN CORPUSCULAR HGB 22.3 pg (27.0-31.0); MEAN CORPUSCULAR HGB CONC 30.9 g/dl (33.0-37.0); MEAN PLATELET VOLUME 8.1 fl (9.6-12.3); MONO # 1.3 10*3/uL (0.1-1.0); MONO % 8.6 % (3.0-9.0); PLATELET COUNT AUTOMATED 710 10*3/uL (130-400); RED BLOOD COUNT 4.48 10*6/uL (4.50-5.90); RED CELL DISTRI WIDTH 18.3 % (0-14.5); WHITE BLOOD COUNT 15.7 10*3/uL (4.8-10.8)
[2018-04-29 20:06] LABS: ACT PARTIAL THROMBO TIME 31.2 SECONDS (20.8-31.5); INTERNATIONAL NORM RATIO 1.1 (2.0-3.5)
[2018-04-29 20:11] LABS: ALBUMIN 2.8 gm/dl (3.1-4.5); ALKALINE PHOSPHATASE 93 U/L (45-117); BUN 11 mg/dl (7-24); CHLORIDE 107 mmol/L (98-107); LIPASE 167 U/L (73-393); POTASSIUM 3.9 mmol/L (3.5-5.1); SGOT/AST 9 IU/L (3-35); SGPT/ALT 13 U/L (12-78); SODIUM 138 mmol/L (136-145); TOTAL PROTEIN 8.6 gm/dL (6.4-8.2)
--- NOTE | 2018-04-29 21:26 | NUR ---
PAIN MEDICATION DIDNT HELP PT REQUESTIONG DILAUDID IZZY FERNANDEZ NOTIFIED
[2018-04-30] VITALS (10 sets, daily range): BP systolic 92–139; BP diastolic 46–88
--- NOTE | 2018-04-30 04:13 | NUR ---
PRN DILAUDID GIVEN ORDERED FOR C/O ABDOMINAL PAIN RATING AN 8/10, PATIENT TOLERATED WELL. CALL LIGHT IS WITHIN REACH. WILL MONITOR EFFECT.
[2018-04-30 06:54] LABS: HEMATOCRIT 30.3 % (42.0-52.0); HEMOGLOBIN 9.1 g/dl (14.0-18.0); MEAN CELL VOLUME 74.1 fl (80.0-94.0); MEAN CORPUSCULAR HGB 22.2 pg (27.0-31.0); MEAN PLATELET VOLUME 8.6 fl (9.6-12.3); PLATELET COUNT AUTOMATED 718 10*3/uL (130-400); RED BLOOD COUNT 4.09 10*6/uL (4.50-5.90); RED CELL DISTRI WIDTH 18.6 % (0-14.5); WHITE BLOOD COUNT 15.9 10*3/uL (4.8-10.8)
[2018-04-30 07:07] LABS: ALBUMIN 2.6 gm/dl (3.1-4.5); ALKALINE PHOSPHATASE 81 U/L (45-117); BUN 10 mg/dl (7-24); CHLORIDE 104 mmol/L (98-107); CHOLESTEROL 98 mg/dL (<200); CREATININE 0.79 mg/dL (0.70-1.30); HDL CHOLESTEROL 22 mg/dl (40-60); LDL CHOLESTEROL 50 mg/dL (9-159); PHOSPHOROUS 2.2 mg/dL (2.5-4.9); POTASSIUM 3.8 mmol/L (3.5-5.1); SGOT/AST 8 IU/L (3-35); SGPT/ALT 11 U/L (12-78); SODIUM 136 mmol/L (136-145); TRIGLYCERIDES 128 mg/dl (<150); VLDL CHOLESTEROL 26 mg/dL (6-40)
[2018-04-30 07:22] LABS: INTERNATIONAL NORM RATIO 1.1 (2.0-3.5)
[2018-04-30 07:29] LABS: MICROCYTOSIS SLIGHT; OVALOCYTES FEW; PLATELET SUFFICIENCY HIGH (NORMAL); POLYCHROMASIA SLIGHT; TOTAL CELLS COUNTED 100 #CELLS; TOXIC GRANULATION SLIGHT
[2018-04-30 07:32] LABS: VITAMIN D, 25-HYDROXY 12.3 ng/mL (30-100)
--- NOTE | 2018-04-30 07:51 | NUR ---
Attempted to consult Dr. Dumont at this time, no answer and voicemail left.
--- NOTE | 2018-04-30 10:10 | NUR ---
PT MEDICATED WITH PRN DILAUDID FOR C/O ABDOMINAL PAIN THAT HE RATES 12/13. WILL REACCESS.
--- NOTE | 2018-04-30 10:50 | NUR ---
PRN DILAUDID EFFECTIVE PER PT.
--- NOTE | 2018-04-30 12:45 | NUR ---
PRN NORCO GIVEN FOR ABDOMINAL PAIN. PT RATES PAIN 10/12. WILL REACCESS.
[2018-04-30 17:58] LABS: IRON 22 ug/dL (65-175); TOTAL IRON BINDING CAPACITY 185 ug/dl (250-450)
--- NOTE | 2018-04-30 19:53 | NUR ---
NORCO GIVEN FOR C/O ABDOMINAL PAIN RATED A 5/10.
--- NOTE | 2018-04-30 22:00 | NUR ---
LYING IN BED; VOICES NO C/O AT THIS TIME. IV FLUIDS INFUSING ORDERED. CALL LIGHT WITHIN REACH.
--- NOTE | 2018-04-30 23:06 | NUR ---
MEDICATED WITH DILAUDID 0.5 MG SLOW IV PUSH FOR C/O ABDOMINAL PAIN.
[2018-05-01] VITALS: BP 134/87
--- NOTE | 2018-05-01 01:00 | NUR ---
STATES DILAUDID SOMEWHAT EFFECTIVE.
--- NOTE | 2018-05-01 05:07 | NUR ---
MEDICATED WITH NORCO FOR C/O ABDOMINAL PAIN.
--- NOTE | 2018-05-01 06:00 | NUR ---
STATES NORCO SOMEWHAT EFFECTIVE.
[2018-05-01 06:26] LABS: BASO % 0.1 % (0.0-1.0); EOS % 0.2 % (1.0-4.0); HEMOGLOBIN 7.6 g/dl (14.0-18.0); LYMPH # 1.4 10*3/uL (1.3-4.4); LYMPH % 14.1 % (27.0-41.0); MEAN CELL VOLUME 73.3 fl (80.0-94.0); MEAN CORPUSCULAR HGB 22.3 pg (27.0-31.0); MEAN CORPUSCULAR HGB CONC 30.4 g/dl (33.0-37.0); MONO # 0.8 10*3/uL (0.1-1.0); MONO % 7.8 % (3.0-9.0); NEUT # 7.7 10*3/uL (2.3-7.9); NEUT % 77.4 % (47.0-73.0); PLATELET COUNT AUTOMATED 553 10*3/uL (130-400); RED BLOOD COUNT 3.41 10*6/uL (4.50-5.90); RED CELL DISTRI WIDTH 18.2 % (0-14.5)
--- NOTE | 2018-05-01 06:49 | NUR ---
MEDICATED WITH DILAUDID FOR C/O ABDOMINAL PAIN RATED A 7/10.
[2018-05-01 07:00] LABS: ALBUMIN 2.1 gm/dl (3.1-4.5); ALKALINE PHOSPHATASE 64 U/L (45-117); BUN 12 mg/dl (7-24); CHLORIDE 109 mmol/L (98-107); CREATININE 0.74 mg/dL (0.70-1.30); IRON 33 ug/dL (65-175); POTASSIUM 4.2 mmol/L (3.5-5.1); SGOT/AST 6 IU/L (3-35); SGPT/ALT 8 U/L (12-78); SODIUM 141 mmol/L (136-145); TOTAL IRON BINDING CAPACITY 172 ug/dl (250-450); TOTAL PROTEIN 6.7 gm/dL (6.4-8.2)
[2018-05-01 08:00] VITALS: BP 115/75
[2018-05-01 12:00] VITALS: BP 125/80
--- NOTE | 2018-05-01 13:47 | NUR ---
PATIENT C/O ABDOMINAL PAIN, RATES 7/10. MEDICATED WITH PRN IV DILAUDID, WILL MONITOR FOR EFFECTIVENESS. CALL LIGHT WITHIN REACH.
--- NOTE | 2018-05-01 15:17 | NUR ---
PATIENT GIVEN PO PRN NORCO FOR C/O ABDOMINAL PAIN, WILL MONITOR. CALL LIGHT WITHIN REACH.
[2018-05-01 16:00] VITALS: BP 122/78
[2018-05-01 20:00] VITALS: BP 132/75
--- NOTE | 2018-05-01 20:26 | NUR ---
PRN ORDER FOR DILAUDID REQUESTED AND RECIEVED FOR C/O PAIN TO THE ABDOMINAL AREA. PT RATES HIS PAIN A 10/12. WILL MONITOR FOR EFFECTIVENESS
--- NOTE | 2018-05-01 21:30 | NUR ---
PRN ORDER FOR DILAUDID MINIMALLY EFFECTIVE PER PT
--- NOTE | 2018-05-01 21:46 | NUR ---
PT REQUESTED AND RECIEVED PRN ORDER FOR [place]. WILL MONITOR FOR EFFECTIVENESS
--- NOTE | 2018-05-01 23:00 | NUR ---
PRN NORCO EFFECTIVE PER ASSESSMENT. PT IS ASLEEP AT THIS TIME WITH NO S/S OF PAIN OR DISTRESS. WILL CONTINUE TO MONITOR.
[2018-05-02] VITALS: BP 123/78
--- NOTE | 2018-05-02 03:11 | NUR ---
PRN ORDER FOR DILAUDID REQUESTED AND RECIEVED FOR C/O PAIN TO THE ABDOMEN. PT RATES HIS PAIN A 6/10. WILL MONITOR FOR EFFECTIVENESS
--- NOTE | 2018-05-02 03:55 | NUR ---
DILAUDID MILDLY EFFECTIVE PER PT.
--- NOTE | 2018-05-02 03:55 | NUR ---
PT REQUESTED AND RECIEVED PRN ORDER FOR NORCO FOR C/O OF PAIN TO THE ABDOMEN. WILL MONITOR FOR EFFECTIVNESS
[2018-05-02 06:20] LABS: ALBUMIN 2.3 gm/dl (3.1-4.5); ALKALINE PHOSPHATASE 69 U/L (45-117); BUN 11 mg/dl (7-24); CHLORIDE 106 mmol/L (98-107); CREATININE 0.83 mg/dL (0.70-1.30); POTASSIUM 3.5 mmol/L (3.5-5.1); SGOT/AST 9 IU/L (3-35); SGPT/ALT 8 U/L (12-78); SODIUM 140 mmol/L (136-145)
[2018-05-02 08:00] VITALS: BP 126/84
--- NOTE | 2018-05-02 09:00 | NUR ---
[place] in to talk to patient. Patient states lives at home with his . There are 25 steps in the home. Physician: Dr. Trevon Chawla [facility]acy: [facility] Home health services: would like an [facility] RN on discharge Patient's level of ADLs: INDEPENDENT Patient has working utilities: yes DME: none Follow-up physician's appointment after d/c: he prefers to make his own follow up appt after discharge Does patient want to access PORTAL?: no Discharge plan discussed with patient. he lives at home with his and 2 children. He is independent in his ADLs and ambulation. Discussed home health care services and he would like a RN to check on him after discharge. When provided with a list of agencies he chose [facility]. When medically stable he will be discharged to home with [facility] services. ALBER BALL
--- NOTE | 2018-05-02 09:29 | NUR ---
IV site to rt arm leaking. IV site discontinued and sterile dressing applied. IV started right forearm with #22 angiocath after 1 attempts. The IV site was prepped with Chloraprep. Heparin lock attached. Sterile dressing applied. Patient tolerated precedure well. Procedure performed according to [facility] policy & procedure. CORY WHITE
--- NOTE | 2018-05-02 10:57 | NUR ---
Medicated with norco per prn order for c/o abdominal pain to mid abdomen. States that dilaudid real wasnt effective. Rates pain /10.
--- NOTE | 2018-05-02 11:30 | NUR ---
States that norco somewhat effective.
[2018-05-02 12:00] VITALS: BP 126/73
[2018-05-02 13:06] LABS: HEMOGLOBIN 8.7 g/dl (14.0-18.0); MEAN CELL VOLUME 73.1 fl (80.0-94.0); MEAN CORPUSCULAR HGB 22.7 pg (27.0-31.0); MEAN CORPUSCULAR HGB CONC 31.1 g/dl (33.0-37.0); MEAN PLATELET VOLUME 8.4 fl (9.6-12.3); PLATELET COUNT AUTOMATED 676 10*3/uL (130-400); RED BLOOD COUNT 3.83 10*6/uL (4.50-5.90); RED CELL DISTRI WIDTH 18.4 % (0-14.5); WHITE BLOOD COUNT 11.5 10*3/uL (4.8-10.8)
[2018-05-02 13:26] LABS: BASOPHILS 1 % (0-1); MICROCYTOSIS SLIGHT; PLATELET SUFFICIENCY HIGH (NORMAL); TOTAL CELLS COUNTED 100 #CELLS
--- NOTE | 2018-05-02 14:46 | NUR ---
Faxed [facility] referral
--- NOTE | 2018-05-02 15:40 | NUR ---
Medicated with dilaudid per prn order for complaints of pain to abdomen. States pain 11/12.
[2018-05-02 16:00] VITALS: BP 129/83
--- NOTE | 2018-05-02 16:00 | NUR ---
States had relief from dilaudid.
[2018-05-02] MEDS ORDERED: SULFASALAZINE500 M1 PO (16:27)
[2018-05-02] MEDS ORDERED: NATURE'S BLEND F1 MG PO (16:27)
[2018-05-02] MEDS ORDERED: FEROSUL325 MG PO (16:27)
[2018-05-02] MEDS ORDERED: FLAGYL500 MG PO (16:27)
[2018-05-02] MEDS ORDERED: Vitamin D PO (16:27)
--- NOTE | 2018-05-02 17:09 | NUR ---
PATIENT MEDICATED WITH NORCO AT THIS TIME FOR COMPLAINTS OF ABDOMINAL PAIN. PATIENT STATES IT IS "ACHING" PATIENT RATES HIS PAIN A 7/10 AT THIS TIME.
--- NOTE | 2018-05-02 17:20 | NUR ---
Discharge instructions reviewed with patient/family. Patient receptive and verbalizes understanding. Follow-up care arranged. Written instructions given to patient/family. Pt left via ambulatory, his mom is picking him up out front and he states she is here. States he has had some relief from norco. CORY WHITE
[2018-05-17] MEDS ORDERED: ZOSYN 3.373.375 GM/5 IV (23:16)
[2018-05-17] MEDS ORDERED: SANDOSTATI100 MCG/1 IV (23:16)
== END 2018-05-02 17:20 | disposition home health service (06) | DRG 385 ==
LOC: ED 17:45 → EDHOLD 04-30 01:03 → 4E 04-30 01:03
PROVIDERS: Internal Medicine Nephrology; Nurse Practitioner Family; Student in an Organized Health Care Education/Training Program; ADMIT Internal Medicine
PROC: 0D758ZZ Dilation of Esophagus, Via Natural or Artificial Opening Endoscopic (ICD-10-PCS; principal; 2018-04-30)
PROC: 0DB78ZX Excision of Stomach, Pylorus, Via Natural or Artificial Opening Endoscopic, Diagnostic (ICD-10-PCS; principal; 2018-04-30)
DX: K50.911 Crohn's disease, unspecified, with rectal bleeding (principal); E43 Unspecified severe protein-calorie malnutrition; R65.10 Systemic inflammatory response syndrome (SIRS) of non-infectious origin without acute organ dysfunction; K64.9 Unspecified hemorrhoids; D50.9 Iron deficiency anemia, unspecified; D47.3 Essential (hemorrhagic) thrombocythemia; K22.2 Esophageal obstruction; E83.41 Hypermagnesemia; R79.82 Elevated C-reactive protein (CRP); K29.70 Gastritis, unspecified, without bleeding; K21.0 Gastro-esophageal reflux disease with esophagitis; K44.9 Diaphragmatic hernia without obstruction or gangrene; F17.210 Nicotine dependence, cigarettes, uncomplicated; Z71.6 Tobacco abuse counseling; Z68.20 Body mass index [BMI] 20.0-20.9, adult; Z88.6 Allergy status to analgesic agent; Z98.52 Vasectomy status; Z80.7 Family history of other malignant neoplasms of lymphoid, hematopoietic and related tissues; Z82.49 Family history of ischemic heart disease and other diseases of the circulatory system; Z79.899 Other long term (current) drug therapy

== ENCOUNTER 2019-04-26 09:44 | Emergency (ER) | payer OTHER ==
[~2019-04-26] VITALS: Ht 180.3 cm; Wt 71.2 kg
[~2019-04-26 09:44] MED LIST changes: +FLAGYL500 MG PO; +SANDOSTATI100 MCG/1 IV; +Vitamin D PO; +ZOSYN 3.373.375 GM/5 IV
[2019-04-26 10:47] LABS: BASO % 0.5 % (0.0-1.0); EOS # 0.1 10*3/uL (0.0-0.4); EOS % 1.2 % (1.0-4.0); HEMATOCRIT 38.5 % (42.0-52.0); HEMOGLOBIN 12.1 g/dl (14.0-18.0); LYMPH # 0.8 10*3/uL (1.3-4.4); LYMPH % 11.8 % (27.0-41.0); MEAN CELL VOLUME 85.6 fl (80.0-94.0); MEAN CORPUSCULAR HGB 26.9 pg (27.0-31.0); MEAN CORPUSCULAR HGB CONC 31.4 g/dl (33.0-37.0); MEAN PLATELET VOLUME 9.1 fl (9.6-12.3); MONO # 0.6 10*3/uL (0.1-1.0); MONO % 9.1 % (3.0-9.0); NEUT # 5.1 10*3/uL (2.3-7.9); NEUT % 76.9 % (47.0-73.0); PLATELET COUNT AUTOMATED 537 10*3/uL (130-400); RED CELL DISTRI WIDTH 17.3 % (0-14.5); WHITE BLOOD COUNT 6.6 10*3/uL (4.8-10.8)
[2019-04-26 11:05] LABS: ALBUMIN 3.4 gm/dl (3.1-4.5); ALKALINE PHOSPHATASE 76 U/L (45-117); BUN 8 mg/dl (7-24); CHLORIDE 107 mmol/L (98-107); CREATININE 1.01 mg/dL (0.70-1.30); LIPASE 81 U/L (73-393); POTASSIUM 3.5 mmol/L (3.5-5.1); SGOT/AST 6 IU/L (3-35); SGPT/ALT 11 U/L (12-78); SODIUM 140 mmol/L (136-145); TOTAL PROTEIN 7.8 gm/dL (6.4-8.2)
[2019-04-26 12:50] LABS: CLARITY CLEAR (CLEAR); COLOR YELLOW (YELLOW)
[2019-04-26 12:51] LABS: BILIRUBIN NEGATIVE (NEGATIVE); BLOOD TRACE-INTACT (NEGATIVE); GLUCOSE NEGATIVE (NEGATIVE); KETONE NEGATIVE (NEGATIVE); SPECIFIC GRAVITY 1.005 (1.005-1.030)
[2019-04-26 12:52] LABS: LEUKO ESTERASE NEGATIVE (NEGATIVE); NITRITE NEGATIVE (NEGATIVE); UROBILINOGEN 0.2 E.U./dl (0.2-1.0)
[2019-04-26] MEDS ORDERED: NORCO 5-325 TA1 EACH PO (13:19)
== END 2019-04-26 13:21 | disposition home or self-care (01) ==
LOC: ED 09:44
PROVIDERS: Physician Assistant
DX: K50.90 Crohn's disease, unspecified, without complications (principal); F17.200 Nicotine dependence, unspecified, uncomplicated; Z88.6 Allergy status to analgesic agent

== ENCOUNTER 2019-06-27 09:51 | Emergency (ER) | payer OTHER ==
[~2019-06-27] VITALS: Ht 180.3 cm; Wt 65.8 kg
[2019-06-27 10:29] LABS: BASO % 0.6 % (0.0-1.0); EOS # 0.1 10*3/uL (0.0-0.4); EOS % 1.7 % (1.0-4.0); HEMATOCRIT 41.2 % (42.0-52.0); HEMOGLOBIN 12.7 g/dl (14.0-18.0); LYMPH # 1.3 10*3/uL (1.3-4.4); LYMPH % 19.8 % (27.0-41.0); MEAN CELL VOLUME 86.4 fl (80.0-94.0); MEAN CORPUSCULAR HGB 26.6 pg (27.0-31.0); MEAN CORPUSCULAR HGB CONC 30.8 g/dl (33.0-37.0); MEAN PLATELET VOLUME 9.2 fl (9.6-12.3); MONO # 0.7 10*3/uL (0.1-1.0); MONO % 10.9 % (3.0-9.0); NEUT # 4.3 10*3/uL (2.3-7.9); NEUT % 66.8 % (47.0-73.0); PLATELET COUNT AUTOMATED 581 10*3/uL (130-400); RED BLOOD COUNT 4.77 10*6/uL (4.50-5.90); RED CELL DISTRI WIDTH 17.9 % (0-14.5); WHITE BLOOD COUNT 6.4 10*3/uL (4.8-10.8)
[2019-06-27 10:43] LABS: ALBUMIN 3.4 gm/dl (3.1-4.5); ALKALINE PHOSPHATASE 97 U/L (45-117); BUN 10 mg/dl (7-24); CHLORIDE 108 mmol/L (98-107); CREATININE 1.09 mg/dL (0.70-1.30); LIPASE 182 U/L (73-393); POTASSIUM 4.6 mmol/L (3.5-5.1); SGOT/AST 14 IU/L (3-35); SGPT/ALT 14 U/L (12-78); SODIUM 139 mmol/L (136-145); TOTAL PROTEIN 8.1 gm/dL (6.4-8.2)
[2019-06-27 11:41] LABS: BILIRUBIN NEGATIVE (NEGATIVE); BLOOD NEGATIVE (NEGATIVE); CLARITY SL CLOUDY (CLEAR); COLOR YELLOW (YELLOW); GLUCOSE NEGATIVE (NEGATIVE); KETONE NEGATIVE (NEGATIVE); NITRITE NEGATIVE (NEGATIVE); PH 6.5 (5.0-9.0); UROBILINOGEN 0.2 E.U./dl (0.2-1.0)
[2019-06-27 11:42] LABS: LEUKO ESTERASE NEGATIVE (NEGATIVE)
[2019-06-27 11:46] LABS: EPITHELIAL CELLS 0-2; WBC 0-2 wbc/hpf (0-5)
[2019-06-27 11:47] LABS: BACTERIA TRACE; MUCOUS TRACE
== END 2019-06-27 11:59 | disposition home or self-care (01) ==
LOC: ED 09:51
PROVIDERS: Nurse Practitioner Family
DX: K59.00 Constipation, unspecified (principal); F17.200 Nicotine dependence, unspecified, uncomplicated; Z88.6 Allergy status to analgesic agent

== ENCOUNTER 2019-09-17 13:55 | Emergency (ER) | payer OTHER ==
[~2019-09-17] VITALS: Ht 180.3 cm; Wt 68.0 kg
[2019-09-17] MEDS ORDERED: NORCO 5-325 TA1 EACH PO (14:40)
[2019-09-17] MEDS ORDERED: SEPTDS PO (14:40)
[2019-09-17] MEDS ORDERED: CEPHALEXIN500 M1 PO (14:40)
== END 2019-09-17 14:39 | disposition home or self-care (01) ==
LOC: ED 13:55
DX: L02.214 Cutaneous abscess of groin (principal); K21.9 Gastro-esophageal reflux disease without esophagitis; F17.200 Nicotine dependence, unspecified, uncomplicated; Z88.6 Allergy status to analgesic agent

== ENCOUNTER 2020-02-23 01:12 | Emergency (ER) | payer OTHER ==
[~2020-02-23] VITALS: Ht 180.3 cm; Wt 63.5 kg
[~2020-02-23 01:12] MED LIST changes: +CEPHALEXIN500 M1 PO; +SEPTDS PO
[2020-02-23] MEDS ORDERED: AMOXICILLIN500 M2 PO (01:45)
== END 2020-02-23 02:13 | disposition home or self-care (01) ==
LOC: ED 01:12
DX: K04.7 Periapical abscess without sinus (principal); K08.89 Other specified disorders of teeth and supporting structures; K21.9 Gastro-esophageal reflux disease without esophagitis; Z88.8 Allergy status to other drugs, medicaments and biological substances

== ENCOUNTER 2020-03-02 14:00 | Emergency (ER) | payer OTHER ==
[~2020-03-02] VITALS: Ht 180.3 cm; Wt 67.6 kg
[~2020-03-02 14:00] MED LIST changes: +AMOXICILLIN500 M2 PO
[2020-03-02 14:41] LABS: BASO % 0.6 % (0.0-1.0); EOS # 0.1 10*3/uL (0.0-0.4); EOS % 1.1 % (1.0-4.0); HEMATOCRIT 40.8 % (42.0-52.0); LYMPH # 1.2 10*3/uL (1.3-4.4); LYMPH % 16.7 % (27.0-41.0); MEAN CELL VOLUME 86.3 fl (80.0-94.0); MEAN CORPUSCULAR HGB 26.4 pg (27.0-31.0); MEAN CORPUSCULAR HGB CONC 30.6 g/dl (33.0-37.0); MEAN PLATELET VOLUME 8.7 fl (9.6-12.3); MONO # 0.5 10*3/uL (0.1-1.0); MONO % 7.1 % (3.0-9.0); NEUT # 5.3 10*3/uL (2.3-7.9); NEUT % 74.4 % (47.0-73.0); PLATELET COUNT AUTOMATED 613 10*3/uL (130-400); RED BLOOD COUNT 4.73 10*6/uL (4.50-5.90); RED CELL DISTRI WIDTH 16.4 % (0-14.5); WHITE BLOOD COUNT 7.1 10*3/uL (4.8-10.8)
[2020-03-02 14:57] LABS: ACT PARTIAL THROMBO TIME 30.9 SECONDS (20.0-32.1)
[2020-03-02 14:59] LABS: ALBUMIN 3.7 gm/dl (3.1-4.5); ALKALINE PHOSPHATASE 92 U/L (45-117); BUN 8 mg/dl (7-24); CHLORIDE 107 mmol/L (98-107); CREATININE 0.97 mg/dL (0.70-1.30); POTASSIUM 3.6 mmol/L (3.5-5.1); SGOT/AST 10 IU/L (3-35); SGPT/ALT 9 U/L (12-78); SODIUM 141 mmol/L (136-145); TOTAL PROTEIN 8.8 gm/dL (6.4-8.2)
== END 2020-03-02 20:30 | disposition home or self-care (01) ==
LOC: ED 14:00
PROVIDERS: Emergency Medicine
DX: K50.90 Crohn's disease, unspecified, without complications (principal); Z88.8 Allergy status to other drugs, medicaments and biological substances; Z79.899 Other long term (current) drug therapy

== ENCOUNTER 2020-12-17 18:29 | Inpatient (IN) | payer OTHER ==
[~2020-12-17] VITALS: Ht 172.7 cm; Wt 54.4 kg
[~2020-12-17 18:29] MED LIST changes: +CIPRO500 MG PO
[2020-12-17 18:35] VITALS: BP 124/81
[2020-12-17 18:44] LABS: BASO % 0.1 % (0.0-1.0); EOS # 0.1 10*3/uL (0.0-0.4); EOS % 0.5 % (1.0-4.0); HEMATOCRIT 23.4 % (42.0-52.0); LYMPH # 0.9 10*3/uL (1.3-4.4); LYMPH % 8.6 % (27.0-41.0); MEAN CELL VOLUME 82.4 fl (80.0-94.0); MEAN CORPUSCULAR HGB 26.4 pg (27.0-31.0); MEAN CORPUSCULAR HGB CONC 32.1 g/dl (33.0-37.0); MEAN PLATELET VOLUME 8.9 fl (9.6-12.3); MONO # 0.8 10*3/uL (0.1-1.0); MONO % 6.8 % (3.0-9.0); NEUT # 9.2 10*3/uL (2.3-7.9); NEUT % 83.6 % (47.0-73.0); PLATELET COUNT AUTOMATED 456 10*3/uL (130-400); RED BLOOD COUNT 2.84 10*6/uL (4.50-5.90); RED CELL DISTRI WIDTH 16.8 % (0-14.5)
[2020-12-17 18:57] LABS: ALBUMIN 2.8 gm/dl (3.1-4.5); ALKALINE PHOSPHATASE 57 U/L (45-117); BUN 18 mg/dl (7-24); CHLORIDE 110 mmol/L (98-107); CREATININE 0.91 mg/dL (0.70-1.30); LIPASE 84 U/L (73-393); POTASSIUM 3.7 mmol/L (3.5-5.1); SGOT/AST 8 IU/L (3-35); SGPT/ALT 10 U/L (12-78); SODIUM 139 mmol/L (136-145); TOTAL PROTEIN 6.8 gm/dL (6.4-8.2)
[2020-12-18] VITALS (15 sets, daily range): BP systolic 85–131; BP diastolic 47–85
[2020-12-18 00:11] LABS: BILIRUBIN Negative (Negative); BLOOD Negative (Negative); CLARITY Clear (Clear); COLOR Yellow (Yellow); GLUCOSE Negative (Negative); KETONE Negative (Negative); LEUKO ESTERASE Negative (Negative); NITRITE Negative (Negative); UROBILINOGEN 0.2 E.U./dl (0.0-1.0)
[2020-12-18 00:47] LABS: RBC 0-2 rbc/hpf (0-2); WBC 0-2 wbc/hpf (0-5)
[2020-12-18 05:31] LABS: ALBUMIN 2.6 gm/dl (3.1-4.5); ALKALINE PHOSPHATASE 54 U/L (45-117); BUN 12 mg/dl (7-24); CHLORIDE 113 mmol/L (98-107); CREATININE 0.89 mg/dL (0.70-1.30); POTASSIUM 4.4 mmol/L (3.5-5.1); SGOT/AST 7 IU/L (3-35); SGPT/ALT 10 U/L (12-78); SODIUM 141 mmol/L (136-145); TOTAL PROTEIN 6.3 gm/dL (6.4-8.2)
[2020-12-18 06:19] LABS: MEAN CELL VOLUME 84.3 fl (80.0-94.0); MEAN CORPUSCULAR HGB 26.2 pg (27.0-31.0); MEAN CORPUSCULAR HGB CONC 31.1 g/dl (33.0-37.0); MEAN PLATELET VOLUME 9.4 fl (9.6-12.3); PLATELET COUNT AUTOMATED 419 10*3/uL (130-400); RED BLOOD COUNT 2.48 10*6/uL (4.50-5.90); RED CELL DISTRI WIDTH 16.9 % (0-14.5)
[2020-12-18 06:29] LABS: HEMATOCRIT 20.9 % (42.0-52.0); WHITE BLOOD COUNT 7.5 10*3/uL (4.8-10.8)
[2020-12-18 07:24] LABS: BURR CELLS MODERATE; PLATELET SUFFICIENCY HIGH (NORMAL); SCHISTOCYTES FEW; TOTAL CELLS COUNTED 100 #CELLS
[2020-12-19 06:07] LABS: HEP B CORE AB, IGM Negative (Negative); HEPATITIS B SURFACE AG Negative (Negative); HEPATITIS C VIRUS ANTIBODY 2.2 s/co (0.0-0.9)
== END 2020-12-18 18:00 | disposition left against medical advice (07) | DRG 245 ==
LOC: ED 18:29 → EDHOLD 21:11
PROVIDERS: Emergency Medicine; Internal Medicine; ADMIT Student in an Organized Health Care Education/Training Program; ATTEND Student in an Organized Health Care Education/Training Program
PROC: 0DB68ZX Excision of Stomach, Via Natural or Artificial Opening Endoscopic, Diagnostic (ICD-10-PCS; principal; 2020-12-18)
PROC: 0DB58ZX Excision of Esophagus, Via Natural or Artificial Opening Endoscopic, Diagnostic (ICD-10-PCS; 2020-12-18)
PROC: 0DD48ZX Extraction of Esophagogastric Junction, Via Natural or Artificial Opening Endoscopic, Diagnostic (ICD-10-PCS; 2020-12-18)
PROC: 30243N1 Transfusion of Nonautologous Red Blood Cells into Central Vein, Percutaneous Approach (ICD-10-PCS; 2020-12-18)
DX: K50.111 Crohn's disease of large intestine with rectal bleeding (principal); K52.9 Noninfective gastroenteritis and colitis, unspecified; E44.0 Moderate protein-calorie malnutrition; D47.3 Essential (hemorrhagic) thrombocythemia; F17.210 Nicotine dependence, cigarettes, uncomplicated; E55.9 Vitamin D deficiency, unspecified; B37.81 Candidal esophagitis; E53.8 Deficiency of other specified B group vitamins; D50.9 Iron deficiency anemia, unspecified; Z71.6 Tobacco abuse counseling; Z88.6 Allergy status to analgesic agent; Z79.899 Other long term (current) drug therapy; K21.00 Gastro-esophageal reflux disease with esophagitis, without bleeding; Z53.29 Procedure and treatment not carried out because of patient's decision for other reasons; K27.4 Chronic or unspecified peptic ulcer, site unspecified, with hemorrhage

== ENCOUNTER → 2021-01-30 | Outpatient (CLI) | payer OTHER | END | disposition home or self-care (01) | LOC: COVID19 16:55 | PROVIDERS: ATTEND Podiatrist Foot & Ankle Surgery | DX: Z11.52 Encounter for screening for COVID-19 (principal) ==

== ENCOUNTER 2022-04-09 19:32 | Emergency (ER) | payer OTHER ==
[~2022-04-09] VITALS: Ht 180.3 cm; Wt 63.5 kg
[2022-04-09 20:04] LABS: BASO % 0.4 % (0.0-1.0); EOS % 0.5 % (1.0-4.0); LYMPH # 0.7 10*3/uL (1.3-4.4); LYMPH % 9.5 % (27.0-41.0); MEAN CELL VOLUME 67.8 fl (80.0-94.0); MEAN CORPUSCULAR HGB CONC 29.4 g/dl (33.0-37.0); MEAN PLATELET VOLUME 8.3 fl (9.6-12.3); MONO # 0.5 10*3/uL (0.1-1.0); MONO % 6.6 % (3.0-9.0); NEUT % 82.7 % (47.0-73.0); PLATELET COUNT AUTOMATED 780 10*3/uL (130-400); RED BLOOD COUNT 5.31 10*6/uL (4.50-5.90); RED CELL DISTRI WIDTH 22.1 % (0-14.5); WHITE BLOOD COUNT 7.3 10*3/uL (4.8-10.8)
[2022-04-09 20:13] LABS: BILIRUBIN Negative (Negative); BLOOD Trace-Lysed (Negative); CLARITY Clear (Clear); COLOR Yellow (Yellow); GLUCOSE Negative (Negative); KETONE 1+ (Negative); LEUKO ESTERASE Negative (Negative); NITRITE Negative (Negative); SPECIFIC GRAVITY 1.025 (1.001-1.030)
[2022-04-09 20:36] LABS: BUN 7 mg/dl (9-23); CHLORIDE 104 mmol/L (98-107); POTASSIUM 3.5 mmol/L (3.4-5.1)
[2022-04-09 20:38] LABS: ETHYL ALCOHOL < 3.0 mg/dl (<3)
[2022-04-09 20:41] LABS: MUCOUS 1+; WBC 0-2 wbc/hpf (0-5)
[2022-04-09 20:51] LABS: URINE AMPHETAMINES Negative (1000ng/ml); URINE BARBITURATES Negative (200ng/ml); URINE BENZODIAZEPINES Negative (200ng/ml); URINE CANNABINOIDS (THC) Positive (50ng/ml); URINE COCAINE Negative (300ng/ml); URINE METHADONE Negative (300ng/ml); URINE OPIATES Negative (300ng/ml); URINE PHENCYCLIDINE Negative (25ng/ml)
== END 2022-04-10 08:04 | disposition home or self-care (01) ==
LOC: ED 19:32
PROVIDERS: Emergency Medicine
DX: F43.20 Adjustment disorder, unspecified (principal); Z20.822 Contact with and (suspected) exposure to COVID-19; Z88.8 Allergy status to other drugs, medicaments and biological substances; Z87.891 Personal history of nicotine dependence

== ENCOUNTER 2022-08-24 10:19 | Emergency (ER) | payer OTHER ==
[~2022-08-24] VITALS: Ht 180.3 cm
[2022-08-24 11:12] LABS: BASO % 0.3 % (0.0-1.0); EOS % 0.2 % (1.0-4.0); HEMATOCRIT 32.9 % (42.0-52.0); LYMPH # 0.6 10*3/uL (1.3-4.4); LYMPH % 5.3 % (27.0-41.0); MEAN CELL VOLUME 68.7 fl (80.0-94.0); MEAN CORPUSCULAR HGB 20.3 pg (27.0-31.0); MEAN CORPUSCULAR HGB CONC 29.5 g/dl (33.0-37.0); MEAN PLATELET VOLUME 8.4 fl (9.6-12.3); MONO # 1.2 10*3/uL (0.1-1.0); MONO % 10.4 % (3.0-9.0); NEUT # 9.9 10*3/uL (2.3-7.9); NEUT % 83.4 % (47.0-73.0); PLATELET COUNT AUTOMATED 595 10*3/uL (130-400); RED BLOOD COUNT 4.79 10*6/uL (4.50-5.90); RED CELL DISTRI WIDTH 21.5 % (0-14.5); WHITE BLOOD COUNT 11.9 10*3/uL (4.8-10.8)
[2022-08-24 11:37] LABS: ALKALINE PHOSPHATASE 77 U/L (46-116); BUN 6 mg/dl (9-23); CHLORIDE 100 mmol/L (98-107); LIPASE 29 U/L (12-53); POTASSIUM 4.5 mmol/L (3.4-5.1); TOTAL PROTEIN 8.7 gm/dL (6.0-8.0)
[2022-08-24 11:48] LABS: SGPT/ALT < 7 U/L (10-49)
[2022-08-24] MEDS ORDERED: PREDNISONE10 MG PO (13:32)
[2022-08-24] MEDS ORDERED: HYDROCODONE-AC1 EAC1 PO (13:50)
== END 2022-08-24 14:07 | disposition home or self-care (01) ==
LOC: ED 10:19
PROVIDERS: Internal Medicine
DX: K51.90 Ulcerative colitis, unspecified, without complications (principal); Z88.8 Allergy status to other drugs, medicaments and biological substances; Z98.890 Other specified postprocedural states; F17.200 Nicotine dependence, unspecified, uncomplicated

== ENCOUNTER 2022-09-19 09:35 | Emergency (ER) | payer OTHER ==
[~2022-09-19] VITALS: Ht 182.8 cm; Wt 52.2 kg
[~2022-09-19 09:35] MED LIST changes: +HYDROCODONE-AC1 EAC1 PO; +PREDNISONE10 MG PO
[2022-09-19] MEDS ORDERED: PREDNISONE20 M1 PO (10:10)
[2022-09-19] MEDS ORDERED: PREDNISONE10 MG PO (10:10)
[2022-09-19] MEDS ORDERED: PREDNISONE50 MG PO (10:10)
== END 2022-09-19 10:37 | disposition home or self-care (01) ==
LOC: ED 09:35
DX: K50.90 Crohn's disease, unspecified, without complications (principal); F17.200 Nicotine dependence, unspecified, uncomplicated; Z88.8 Allergy status to other drugs, medicaments and biological substances; Z79.899 Other long term (current) drug therapy